=== PATIENT | male | born 1955 | race Hispanic/Latino ===

== ENCOUNTER → 2018-10-08 | Day surgery (SDC) | payer MEDICARE ==
[2018-10-05 13:02] VITALS: BMI 28.1
[~2018-10-08] MED LIST: Ciprofloxacin 400mg/200ml D5W 400 MG/200 ML BAG IVPB ONE; HYDROmorphone 0.5 mg/0.5 ml ISec IVP PRN; Iohexol 240 (50 ml) ONE; Lidocaine 2% Jelly (Uro-Jet) ONE; Midazolam 2 MG/2 ML VIAL ONE; Propofol 10 mg/ml Inj (20 ML) ONE; Sodium Chloride 0.9% 40 ML IV ONE
--- NOTE | 2018-10-08 15:28 | RAD ---
Date of service: 10/08/2018 HISTORY: RT KIDNEY STONE COMPARISON: None available. FINDINGS: BOWEL: Normal. No obstruction. No free air. BONES: Degenerative changes. OTHER FINDINGS: Indwelling right double-J ureteral stent. No radiopaque genitourinary calculi. IMPRESSION: Right double-J ureteral stent. No radiopaque genitourinary calculi.
[2018-10-08 16:24] VITALS: RESP 16; TEMP 97.4; O2SAT 99
[2018-10-08 17:04] VITALS: BP 137/79; PULSE 100
--- NOTE | 2018-10-09 16:50 | RAD ---
PROCEDURE: HISTORY: As above COMPARISON: None TECHNIQUE: Total fluoroscopic time utilized during the procedure: 128.2 seconds ; 1.83 mGy cm 2 FINDINGS: Submitted images from the current procedure: 12 Please refer to the physician's notes performing the procedure. IMPRESSION: Less than 1 hour fluoroscopic time utilized during performance of the procedure
--- NOTE | 2018-10-11 06:59 | OP ---
PROCEDURE DATE: 10/08/2018 PREOPERATIVE DIAGNOSIS: Condition post drainage of renal abscess and nephrostomy due to severe hydronephrosis due to obstruction which converted to insertion of stent on the removal of the nephrostomy. The patient at this stage has ureteral stent after removal of the nephrostomy and has renal stone and ureteral obstruction. POSTOPERATIVE DIAGNOSIS: Large filling defect in the upper part of the ureter with nonopaque stone in the renal pelvis. PROCEDURES: Cystourethral dilatation, urethroscopy, biopsy of the upper ureteral lesion, and reinsertion of stents. DESCRIPTION OF PROCEDURE: While the patient in lithotomy position, and after starting anesthesia, genitalia was prepped and draped in sterile fashion. KUB done, which did not reveal any stone and showed a stent in the right position. The patient was given Cipro 400 piggyback, and cystoscopy done which revealed anterior urethral stricture and posterior stricture which is dilated to go into the bladder. After dilatation and cystoscopy inserted, the prostate revealed mild prostatic hypertrophy. No obstruction. The bladder is normal. No tumor, no stone. Dome, lateral wall and trigone with normal limit. The stent was grasped and pulled to the meatus. Sensor wire inserted, and the rest of the stent removed, wire went up to the renal pelvis. Open-end catheter was inserted over the wire, and retrograde revealed calyceal system mildly dilated with defect of represent stone in the renal pelvis. The upper ureter occupied with large defect mass extending from the upper ureter to about 1 inch length, and it showed that mass occupied the upper ureter and that is the reason for the obstruction. After doing the retrograde, ureteroscopy done using the rigid scope went up to the area close to the upper ureter and that showed the defect necrotic material with no clear tissue seen. Multiple biopsy taken from different location in the area, and one area started to bleed mildly. After taking four to five pieces from the area and multiple areas of the filling defect, the scope was removed and the sensor wire was positioned up into the renal pelvis. A #6-Armenian multi-length stent inserted, coiled up into the renal pelvis and down to the bladder. The patient tolerated the procedure well, and after taking fluoro to confirm the position, the scope was removed and the patient was transferred to the recovery room in stable condition. June Agarwal MD [facility] # [id number]
== END | disposition home or self-care (01) ==
LOC: C.SDS 09:39
PROVIDERS: ATTEND Specialist
DX: N20.0 Calculus of kidney (principal); E11.9 Type 2 diabetes mellitus without complications; N35.816 Other urethral stricture, male, overlapping sites; N40.0 Benign prostatic hyperplasia without lower urinary tract symptoms; N28.9 Disorder of kidney and ureter, unspecified
CPT/HCPCS: 52332; 52354; 74018; 82948; 88305; 88312; 93005; C1758; C1769; C2617; J0744; Q9966

== ENCOUNTER 2018-11-16 09:53 | Day surgery (SDC) | payer MEDICARE ==
[2018-10-05 13:02] VITALS: BMI 28.1
[2018-11-16] MEDS ORDERED: Ciprofloxacin 400mg/200ml D5W 400 MG/200 ML BAG IVPB ONE (11:45)
[2018-11-16] MEDS ORDERED: Iohexol 240 (50 ml) ONE (11:45)
[2018-11-16] MEDS ORDERED: Propofol 10 mg/ml Inj (20 ML) ONE (11:55)
[2018-11-16] MEDS ORDERED: Midazolam 2 MG/2 ML VIAL ONE (11:55)
[2018-11-16] MEDS ORDERED: Lidocaine Hydrochloride 5 ML INJ ONE (11:56)
[2018-11-16] MEDS ORDERED: HYDROmorphone 0.5 mg/0.5 ml ISec IVP PRN (13:00)
[2018-11-16 14:29] VITALS: RESP 16
[2018-11-16 15:51] VITALS: BP 136/74; PULSE 85; TEMP 97.6; O2SAT 99
--- NOTE | 2018-11-16 16:56 | RAD ---
Date of service: 11/16/2018 HISTORY: RT URETERAL COMPARISON: 10/08/2018 TECHNIQUE: 1 view obtained. FINDINGS: BOWEL: Normal bowel gas pattern. Mild retained feces. Right ureteral stent noted. There is a calculus adjacent to or projecting over the distal left ureteral stent below the level of the right sacral ala. BONES: Normal. OTHER FINDINGS: None. IMPRESSION: Right ureteral stent. Possible right ureteral calculus.
--- NOTE | 2018-11-17 04:09 | OP ---
PROCEDURE DATE: 11/16/2018 PREOPERATIVE DIAGNOSIS: Right upper ureteral obstruction due to necrotic material and may be embedded stone, nonopaque stone in the right renal pelvis. PROCEDURE PERFORMED: Cystoscopy, removal of the old stent insertion, ureteroscopy, and basketing necrotic material, and retrograde insertion of stent. DESCRIPTION OF THE PROCEDURE: While the patient in lithotomy position and after starting anesthesia, genitalia prepped and draped in sterile fashion. The patient was given Cipro 400 IV piggyback. Cysto showed little obstruction in the submucous area which dilated. A #22 cystoscope was inserted into the bladder, revealed the stent in the right side. No evidence of any bladder tumor or any stone in the bladder. The stent was grasped and removed under fluoro. Sensor wire was inserted, and after removing the scope, the long urethroscope inserted followed by a wire. Multiple small necrotic material on the lower part seen. Retrograde revealed large defect in the upper part of the ureter, representing necrotic material and biopsy before done, which revealed a necrotic material, fungus, and the fragment of stone. The patient was on antifungal medication which did not get rid of all this necrotic material. Today, using the basket, some of the necrotic material was removed as much as possible. No stone found in the mid ureter or the lower ureter. All the obstruction in the upper ureter. The retrograde done which revealed the stone in the right renal pelvis which is nonopaque, could not be seen on the KUB. After removing the necrotic material and basket some of the stuff, the urethroscope was removed, the stent inserted, positioned between the kidney and the bladder and coiled well in the renal pelvis and in the bladder. The patient tolerated the procedure well after removing the scope and the patient was transferred in stable condition. June Agarwal MD
--- NOTE | 2018-11-19 12:42 | RAD ---
Date of service: 11/16/2018 PROCEDURE: Intraoperative Fluoroscopy. HISTORY: RT URETERAL MASS FINDINGS: Fluoroscopic assistance was provided. Fluoroscopy time = 59.1 sec. Radiation dose = 1.19 mGy. Please refer to the operative report additional details.
== END 2018-11-16 16:45 | disposition home or self-care (01) ==
LOC: C.SDS 09:53
PROVIDERS: ATTEND Specialist
DX: N20.0 Calculus of kidney (principal); N13.5 Crossing vessel and stricture of ureter without hydronephrosis
CPT/HCPCS: 52332; 74018; 76000; 82948; 88305; C1758; C1769; C2617; J0744